=== PATIENT | female | born 1955 | race Caucasian/White ===

== ENCOUNTER → 2016-10-22 | Outpatient (REF) | payer BC | LOC: M SFHCPLAZ 11:21 | PROVIDERS: ATTEND Nurse Practitioner Adult Health | DX: J02.9 Acute pharyngitis, unspecified (principal) ==

== ENCOUNTER → 2016-11-29 | Outpatient (CLI) | payer BC ==
--- NOTE | 2016-11-29 09:22 | REPMRS ---
Patient History The patient states she had a clinical breast exam in 11/2016. Patient is postmenopausal. No known family history of cancer. Took progesterone for 8 months. Digital Woman Screen Mammo: November 29, 2016 - Exam #: [id number] Bilateral CC and MLO view(s) were taken. Technologist: Breanna Manuel, Technologist Prior study comparison: August 01, 2015, digital woman screen mammo performed at [facility] to [facility]. February 11, 2014, digital woman screen mammo performed at [facility] to [facility]. FINDINGS: There are scattered fibroglandular densities. There has been no change in the appearance of the mammogram from the prior studies. There is a mild amount of residual fibroglandular tissue which is fairly symmetric. There is no interval development of dominant mass, architectural distortion, or clustered microcalcification suggestive of malignancy. ASSESSMENT: BI-RADS/ACR category 1 mammogram. Negative. Recommendation Routine screening mammogram in 1 year (for women over age 40). This mammogram was interpreted with the aid of an FDA-approved computer-aided dectection system. Electronically Signed By: Jd Daniels MD 11/29/16 0922
== END ==
LOC: M WHC 07:35
PROVIDERS: ATTEND Nurse Practitioner Family
DX: Z12.31 Encounter for screening mammogram for malignant neoplasm of breast (principal); Z78.0 Asymptomatic menopausal state

== ENCOUNTER → 2017-10-07 | Outpatient (REF) | payer BC ==
[2017-10-07 09:51] LABS: HEMATOCRIT 40.2 % (36.0-47.0); HEMOGLOBIN 13.4 g/dl (12.0-16.0); MEAN CORPUSCULAR HEMOGLOBIN 30.6 pg (27.0-33.0); MEAN CORPUSCULAR HGB CONC 33.3 g/dl (32.0-36.5); MEAN CORPUSCULAR VOLUME 91.8 fl (80.0-96.0); PLATELET COUNT, AUTOMATED 208 10^3/uL (150-450); RED BLOOD COUNT 4.38 10^6/uL (4.00-5.40); WHITE BLOOD COUNT 4.1 10^3/uL (4.0-10.0)
[2017-10-07 10:44] LABS: ALBUMIN 4.1 GM/DL (3.2-5.2); ALBUMIN/GLOBULIN RATIO 1.28 (1.00-1.93); ALKALINE PHOSPHATASE 69 U/L (45-117); ALT/SGPT 14 U/L (12-78); ANION GAP 7 MEQ/L (8-16); AST/SGOT 15 U/L (7-37); BILIRUBIN,TOTAL 0.4 MG/DL (0.2-1.0); BLOOD UREA NITROGEN 13 MG/DL (7-18); CALCIUM LEVEL 8.9 MG/DL (8.8-10.2); CARBON DIOXIDE LEVEL 29 MEQ/L (21-32); CHLORIDE LEVEL 106 MEQ/L (98-107); CHOLESTEROL LEVEL 226 MG/DL (<200); CHOLESTEROL RISK RATIO 3.138 (<5); CREATININE FOR GFR 0.72 MG/DL (0.55-1.30); GLOMERULAR FILTRATION RATE > 60.0 (>45); GLUCOSE, FASTING 103 MG/DL (70-100); HDL CHOLESTEROL 72 MG/DL (>40); MAGNESIUM LEVEL 2.6 MG/DL (1.8-2.4); NON-HDL-C 154 MG/DL; POTASSIUM SERUM 4.1 MEQ/L (3.5-5.1); SODIUM LEVEL 142 MEQ/L (136-145); TOTAL PROTEIN 7.3 GM/DL (6.4-8.2); TRIGLYCERIDES LEVEL 90 MG/DL (<150)
[2017-10-07 12:40] LABS: TOTAL 25(OH) VITAMIN D 40.3 NG/ML (30.0-100.0)
[2017-10-07 12:41] LABS: VITAMIN B12 LEVEL 323 PG/ML (247-911)
== END ==
LOC: M SFHCPLAZ 09:21
DX: Z00.00 Encounter for general adult medical examination without abnormal findings (principal); R13.10 Dysphagia, unspecified; E03.9 Hypothyroidism, unspecified; E55.9 Vitamin D deficiency, unspecified
CPT/HCPCS: 83735

== ENCOUNTER → 2018-06-09 | Outpatient (REF) | payer BC | LOC: M LAB REF 18:28 | DX: L57.0 Actinic keratosis (principal); L28.0 Lichen simplex chronicus ==

== ENCOUNTER → 2018-07-11 | Outpatient (CLI) | payer BC | LOC: M WHC 08:24 | DX: Z12.31 Encounter for screening mammogram for malignant neoplasm of breast (principal); Z78.0 Asymptomatic menopausal state; Z92.29 Personal history of other drug therapy | CPT/HCPCS: 77067 ==

== ENCOUNTER → 2019-06-02 | Outpatient (REF) | payer BC ==
[2019-06-02 11:48] LABS: HEMOGLOBIN 13.1 g/dl (12.0-15.5); MEAN CORPUSCULAR HEMOGLOBIN 30.7 pg (27.0-33.0); PLATELET COUNT, AUTOMATED 208 10^3/uL (150-450); RED BLOOD COUNT 4.27 10^6/uL (4.00-5.40); WHITE BLOOD COUNT 3.7 10^3/uL (4.0-10.0)
[2019-06-02 12:05] LABS: ALBUMIN 3.7 GM/DL (3.2-5.2); ALT/SGPT 16 U/L (12-78); BILIRUBIN,TOTAL 0.6 MG/DL (0.2-1.0); BLOOD UREA NITROGEN 14 MG/DL (7-18); CALCIUM LEVEL 8.6 MG/DL (8.8-10.2); CARBON DIOXIDE LEVEL 30 MEQ/L (21-32); CHLORIDE LEVEL 109 MEQ/L (98-107); CHOLESTEROL LEVEL 190 MG/DL (<200); CHOLESTEROL RISK RATIO 2.794 (<5); GLOMERULAR FILTRATION RATE > 60.0 (>45); GLUCOSE, FASTING 99 MG/DL (70-100); HDL CHOLESTEROL 68 MG/DL (>40); LDL CHOLESTEROL 113 MG/DL (<100); NON-HDL-C 122 MG/DL; POTASSIUM SERUM 4.4 MEQ/L (3.5-5.1); SODIUM LEVEL 144 MEQ/L (136-145); TRIGLYCERIDES LEVEL 47 MG/DL (<150); VITAMIN B12 LEVEL 278 PG/ML (247-911)
== END ==
LOC: M LAB REF 11:28
PROVIDERS: ATTEND Nurse Practitioner Adult Health
DX: Z00.00 Encounter for general adult medical examination without abnormal findings (principal); Z13.220 Encounter for screening for lipoid disorders; E03.9 Hypothyroidism, unspecified

== ENCOUNTER → 2019-07-13 | Outpatient (REF) | payer BC | LOC: M PLALAB 09:08 | PROVIDERS: ATTEND Nurse Practitioner Family | DX: Z12.4 Encounter for screening for malignant neoplasm of cervix (principal); N95.2 Postmenopausal atrophic vaginitis | CPT/HCPCS: 87624; G0123 ==

== ENCOUNTER → 2019-07-13 | Outpatient (CLI) | payer BC ==
--- NOTE | 2019-07-13 09:50 | REPMRS ---
Patient History The patient states she had a clinical breast exam in 2018. Family history of breast cancer at age 50 or over in paternal half sister. Took progesterone for 8 months. Digital Woman Screen Mammo: July 13, 2019 - Exam #: [id number] Bilateral CC and MLO view(s) were taken. Technologist: Veronica Altamirano, Technologist Prior study comparison: July 11, 2018, bilateral digital woman screen mammo performed at [facility]. November 29, 2016, digital woman screen mammo performed at [facility]. August 01, 2015, digital woman screen mammo performed at [facility]. FINDINGS: There are scattered fibroglandular densities. There is a 4 mm nodular opacity centrally in the left breast unchanged from the 2017 prior study. There has been no other change in the appearance of the mammogram from the prior studies. There is a mild amount of scattered fibroglandular density which is fairly symmetric. There is no interval development of dominant mass, architectural distortion, or grouped microcalcification suggestive of malignancy. 3-D tomosynthesis shows no additional findings. Assessment: BI-RADS/ACR category 2 mammogram. Benign Findings. Recommendation Routine screening mammogram of both breasts in 1 year (for women over age 40). This patient's Lifetime Breast Cancer Risk is estimated at 7.7 %. This mammogram was interpreted with the aid of an FDA-approved computer-aided dectection system. Electronically Signed By: Will Venegas MD 07/13/19 9361
== END ==
LOC: M WHC 08:49
PROVIDERS: ATTEND Nurse Practitioner Family
DX: Z12.31 Encounter for screening mammogram for malignant neoplasm of breast (principal); Z80.3 Family history of malignant neoplasm of breast

== ENCOUNTER → 2020-06-14 | Outpatient (REF) | payer BC ==
[2020-06-14 13:14] LABS: ALBUMIN 4.1 GM/DL (3.2-5.2); ALT/SGPT 21 U/L (12-78); BILIRUBIN,TOTAL 0.8 MG/DL (0.2-1.0); BLOOD UREA NITROGEN 16 MG/DL (7-18); CALCIUM LEVEL 9.2 MG/DL (8.8-10.2); CARBON DIOXIDE LEVEL 30 MEQ/L (21-32); CHLORIDE LEVEL 106 MEQ/L (98-107); CHOLESTEROL LEVEL 237 MG/DL (<200); CHOLESTEROL RISK RATIO 2.962 (<5); CREATININE FOR GFR 0.79 MG/DL (0.55-1.30); GLOMERULAR FILTRATION RATE > 60.0 (>45); GLUCOSE, FASTING 81 MG/DL (70-100); HDL CHOLESTEROL 80 MG/DL (>40); LDL CHOLESTEROL 147 MG/DL (<100); NON-HDL-C 157 MG/DL; POTASSIUM SERUM 4.3 MEQ/L (3.5-5.1); SODIUM LEVEL 141 MEQ/L (136-145); TOTAL 25(OH) VITAMIN D 48.3 NG/ML (30.0-100.0); TOTAL PROTEIN 7.6 GM/DL (6.4-8.2); TRIGLYCERIDES LEVEL 49 MG/DL (<150)
== END ==
LOC: M SFHCPLAZ 11:37
PROVIDERS: ATTEND Nurse Practitioner Adult Health
DX: Z00.00 Encounter for general adult medical examination without abnormal findings (principal); E55.9 Vitamin D deficiency, unspecified; Z13.220 Encounter for screening for lipoid disorders; E03.9 Hypothyroidism, unspecified

== ENCOUNTER → 2020-06-28 | Outpatient (REF) | payer BC | LOC: M SFHCWAGY 10:04 | PROVIDERS: ATTEND Nurse Practitioner Adult Health | DX: Z00.00 Encounter for general adult medical examination without abnormal findings (principal) ==

== ENCOUNTER → 2020-07-30 | Outpatient (CLI) | payer BC | LOC: M LABSMTC 11:14 | PROVIDERS: ATTEND Pediatrics | DX: Z20.828 Contact with and (suspected) exposure to other viral communicable diseases (principal) ==

== ENCOUNTER → 2021-01-06 | Outpatient (REF) | payer BC ==
[2021-01-06 11:32] LABS: HEMATOCRIT 40.7 % (36.0-47.0); HEMOGLOBIN 13.2 g/dl (12.0-15.5); MEAN CORPUSCULAR HEMOGLOBIN 29.8 pg (27.0-33.0); MEAN CORPUSCULAR HGB CONC 32.4 g/dl (32.0-36.5); MEAN CORPUSCULAR VOLUME 91.9 fl (80.0-96.0); PLATELET COUNT, AUTOMATED 192 10^3/uL (150-450); RED BLOOD COUNT 4.43 10^6/uL (4.00-5.40); WHITE BLOOD COUNT 3.3 10^3/uL (4.0-10.0)
[2021-01-06 14:58] LABS: ALT/SGPT 18 U/L (12-78); BILIRUBIN,TOTAL 0.4 MG/DL (0.2-1.0); BLOOD UREA NITROGEN 14 MG/DL (7-18); CALCIUM LEVEL 9.1 MG/DL (8.8-10.2); CARBON DIOXIDE LEVEL 29 MEQ/L (21-32); CHLORIDE LEVEL 106 MEQ/L (98-107); CREATININE FOR GFR 0.62 MG/DL (0.55-1.30); FERRITIN 146 NG/ML (8-252); GLOMERULAR FILTRATION RATE > 60.0 (>45); GLUCOSE, FASTING 78 MG/DL (70-100); IRON (FE) 75 UG/DL (50-170); PERCENT SATURATION 26.1 % (13.2-45.0); POTASSIUM SERUM 3.9 MEQ/L (3.5-5.1); SODIUM LEVEL 140 MEQ/L (136-145); TOTAL IRON BINDING CAPACITY 287 UG/DL (250-450); TOTAL PROTEIN 7.2 GM/DL (6.4-8.2)
[2021-01-06 15:00] LABS: TOTAL 25(OH) VITAMIN D 40.9 NG/ML (30.0-100.0); VITAMIN B12 LEVEL > 2000 PG/ML (247-911)
== END ==
LOC: M LAB REF 09:39
PROVIDERS: ATTEND Nurse Practitioner Adult Health
DX: E55.9 Vitamin D deficiency, unspecified (principal); R53.83 Other fatigue; E53.8 Deficiency of other specified B group vitamins; E03.9 Hypothyroidism, unspecified

== ENCOUNTER → 2021-10-10 | Outpatient (REF) | payer BC | LOC: M LAB REF 11:34 | PROVIDERS: ATTEND Nurse Practitioner Adult Health | DX: E03.9 Hypothyroidism, unspecified (principal) ==

== ENCOUNTER → 2021-10-24 | Outpatient (REF) | payer BC | LOC: M SFHCPLAZ 19:35 | PROVIDERS: ATTEND Nurse Practitioner Adult Health | DX: R21 Rash and other nonspecific skin eruption (principal); R50.9 Fever, unspecified ==

== ENCOUNTER → 2021-10-25 | Outpatient (CLI) | payer BC ==
[2021-10-25 10:17] LABS: HEMATOCRIT 40.9 % (36.0-47.0); HEMOGLOBIN 13.6 g/dl (12.0-15.5); MEAN CORPUSCULAR HEMOGLOBIN 30.2 pg (27.0-33.0); MEAN CORPUSCULAR HGB CONC 33.3 g/dl (32.0-36.5); MEAN CORPUSCULAR VOLUME 90.7 fl (80.0-96.0); PLATELET COUNT, AUTOMATED 249 10^3/uL (150-450); RED BLOOD COUNT 4.51 10^6/uL (4.00-5.40); WHITE BLOOD COUNT 8.4 10^3/uL (4.0-10.0)
[2021-10-25 10:35] LABS: ALBUMIN 3.7 GM/DL (3.2-5.2); ALT/SGPT 18 U/L (12-78); BILIRUBIN,TOTAL 0.6 MG/DL (0.2-1.0); BLOOD UREA NITROGEN 15 MG/DL (7-18); C REACTIVE PROTEIN QUANTITATIV 0.76 MG/DL (0.00-0.30); CALCIUM LEVEL 9.4 MG/DL (8.8-10.2); CARBON DIOXIDE LEVEL 33 MEQ/L (21-32); CHLORIDE LEVEL 105 MEQ/L (98-107); CREATININE FOR GFR 0.82 MG/DL (0.55-1.30); GLOMERULAR FILTRATION RATE > 60.0 (>45); GLUCOSE, FASTING 110 MG/DL (70-100); POTASSIUM SERUM 4.1 MEQ/L (3.5-5.1); SODIUM LEVEL 141 MEQ/L (136-145); TOTAL PROTEIN 6.8 GM/DL (6.4-8.2)
[2021-10-25 10:42] LABS: ERYTHROCYTE SEDIMENTATION RATE 13 mm/hr (0-30)
== END ==
LOC: M PLALAB 07:00
PROVIDERS: ATTEND Nurse Practitioner Adult Health
DX: R21 Rash and other nonspecific skin eruption (principal); R50.9 Fever, unspecified

== ENCOUNTER → 2022-03-20 | Outpatient (CLI) | payer BC | LOC: M WHC 07:24 | PROVIDERS: ATTEND Nurse Practitioner Adult Health | DX: Z12.31 Encounter for screening mammogram for malignant neoplasm of breast (principal) ==

== ENCOUNTER → 2022-12-06 | Outpatient (CLI) | payer BC ==
[2022-12-06 09:00] LABS: HEMATOCRIT 39.8 % (36.0-47.0); HEMOGLOBIN 13.1 g/dl (12.0-15.5); MEAN CORPUSCULAR HEMOGLOBIN 30.6 pg (27.0-33.0); MEAN CORPUSCULAR HGB CONC 32.9 g/dl (32.0-36.5); PLATELET COUNT, AUTOMATED 201 10^3/uL (150-450); RED BLOOD COUNT 4.28 10^6/uL (4.00-5.40); WHITE BLOOD COUNT 4.9 10^3/uL (4.0-10.0)
[2022-12-06 09:24] LABS: ALBUMIN 3.8 G/DL (3.2-5.2); ALKALINE PHOSPHATASE 66 U/L (46-116); ALT/SGPT 14 U/L (7.0-40); AST/SGOT 20 U/L (<34); BILIRUBIN,TOTAL 0.5 MG/DL (0.3-1.2); BLOOD UREA NITROGEN 18 MG/DL (9-23); CARBON DIOXIDE LEVEL 30 MMOL/L (20-31); CHLORIDE LEVEL 106 MMOL/L (98-107); CREATININE FOR GFR 0.71 MG/DL (0.55-1.30); GLOMERULAR FILTRATION RATE > 60.0 (>45); GLUCOSE, FASTING 106 MG/DL (74-106); MAGNESIUM LEVEL 2.2 MG/DL (1.8-2.4); POTASSIUM SERUM 4.3 MMOL/L (3.5-5.1); SODIUM LEVEL 141 MMOL/L (136-145); TOTAL PROTEIN 6.7 G/DL (5.7-8.2)
[2022-12-06 09:26] LABS: THYROID STIMULATING HORMONE 1.349 uIU/ML (0.55-4.78); TOTAL 25(OH) VITAMIN D 49.9 NG/ML (20.0-100.0); VITAMIN B12 LEVEL 1080 PG/ML (211-911)
== END ==
LOC: M RAD 08:19
PROVIDERS: ATTEND Nurse Practitioner Adult Health
DX: E03.9 Hypothyroidism, unspecified (principal); R25.2 Cramp and spasm; R53.83 Other fatigue; M79.661 Pain in right lower leg; E83.51 Hypocalcemia; Z83.49 Family history of other endocrine, nutritional and metabolic diseases

== ENCOUNTER → 2022-12-06 | Outpatient (REF) | payer BC | LOC: M SFHCPLAZ 07:47 | PROVIDERS: ATTEND Nurse Practitioner Adult Health | DX: Z53.9 Procedure and treatment not carried out, unspecified reason (principal) ==

== ENCOUNTER → 2023-04-04 | Outpatient (CLI) | payer BC | LOC: M WHC 10:31 | PROVIDERS: ATTEND Nurse Practitioner Adult Health | DX: Z12.31 Encounter for screening mammogram for malignant neoplasm of breast (principal) ==

== ENCOUNTER → 2024-05-12 | Outpatient (CLI) | payer BC | LOC: M WHC 07:25 | PROVIDERS: ATTEND Nurse Practitioner Adult Health | DX: Z12.31 Encounter for screening mammogram for malignant neoplasm of breast (principal) ==

== ENCOUNTER → 2024-05-19 | Outpatient (CLI) | payer BC ==
[2024-05-19 13:02] LABS: HEMATOCRIT 40.4 % (36.0-47.0); HEMOGLOBIN 13.2 g/dl (12.0-15.5); MEAN CORPUSCULAR HEMOGLOBIN 30.9 pg (27.0-33.0); MEAN CORPUSCULAR HGB CONC 32.7 g/dl (32.0-36.5); MEAN CORPUSCULAR VOLUME 94.6 fl (80.0-96.0); PLATELET COUNT, AUTOMATED 201 10^3/uL (150-450); RED BLOOD COUNT 4.27 10^6/uL (4.00-5.40); WHITE BLOOD COUNT 4.2 10^3/uL (4.0-10.0)
[2024-05-19 13:13] LABS: INR 1.06; PARTIAL THROMBOPLASTIN TIME 29.7 SECONDS (24.8-34.2); PROTHROMBIN TIME 13.5 SECONDS (12.5-14.5)
[2024-05-19 13:15] LABS: HEMOGLOBIN A1c 5.1 % (4.0-6.0)
[2024-05-19 13:32] LABS: ALBUMIN 3.9 G/DL (3.2-5.2); ALKALINE PHOSPHATASE 66 U/L (46-116); ALT/SGPT 13 U/L (7.0-40); AST/SGOT 10 U/L (<34); BILIRUBIN,DIRECT 0.1 MG/DL (<0.4); BILIRUBIN,TOTAL 0.5 MG/DL (0.3-1.2); BLOOD UREA NITROGEN 13 MG/DL (9-23); CALCIUM LEVEL 9.8 MG/DL (8.3-10.6); CARBON DIOXIDE LEVEL 30 MMOL/L (20-31); CHLORIDE LEVEL 107 MMOL/L (98-107); CREATININE FOR GFR 0.72 MG/DL (0.55-1.30); GLOMERULAR FILTRATION RATE > 60.0 (>45); GLUCOSE, FASTING 99 MG/DL (74-106); PHOSPHORUS LEVEL 4.5 MG/DL (2.4-5.1); POTASSIUM SERUM 4.3 MMOL/L (3.5-5.1); SODIUM LEVEL 141 MMOL/L (136-145); TOTAL PROTEIN 7.3 G/DL (5.7-8.2)
== END ==
LOC: M PLALAB 09:20
PROVIDERS: ATTEND Student in an Organized Health Care Education/Training Program
DX: Z01.818 Encounter for other preprocedural examination (principal)

== ENCOUNTER → 2024-06-23 | Outpatient (CLI) | payer BC | LOC: M PLAIMG 16:19 | PROVIDERS: ATTEND Nurse Practitioner Adult Health | DX: R05.3 Chronic cough (principal); R09.89 Other specified symptoms and signs involving the circulatory and respiratory systems ==

== ENCOUNTER → 2024-09-16 | Outpatient (REF) | payer BC ==
[2024-09-16 14:18] LABS: ALBUMIN 4.1 G/DL (3.2-5.2); ALKALINE PHOSPHATASE 68 U/L (35-104); ALT/SGPT 15 U/L (7.0-40); AST/SGOT 18 U/L (<34); BILIRUBIN,TOTAL 0.5 MG/DL (0.3-1.2); BLOOD UREA NITROGEN 18 MG/DL (9-23); CALCIUM LEVEL 9.1 MG/DL (8.3-10.6); CARBON DIOXIDE LEVEL 27 MMOL/L (20-31); CHLORIDE LEVEL 103 MMOL/L (98-107); CHOLESTEROL LEVEL 247 MG/DL (<200); CHOLESTEROL RISK RATIO 3.39 (<5); CREATININE FOR GFR 0.69 MG/DL (0.55-1.30); FREE T4 1.44 NG/DL (0.89-1.76); GLOMERULAR FILTRATION RATE > 60.0 (>45); GLUCOSE, FASTING 93 MG/DL (74-106); HDL CHOLESTEROL 72.7 MG/DL (>40); LDL CHOLESTEROL 162.7 MG/DL (<100); MAGNESIUM LEVEL 2.2 MG/DL (1.8-2.4); NON-HDL-C 174.3 MG/DL; POTASSIUM SERUM 4.5 MMOL/L (3.5-5.1); SODIUM LEVEL 142 MMOL/L (136-145); THYROID STIMULATING HORMONE 1.023 uIU/ML (0.55-4.78); TOTAL PROTEIN 7.6 G/DL (5.7-8.2); TRIGLYCERIDES LEVEL 58 MG/DL (<150); VITAMIN B12 LEVEL 1594 PG/ML (211-911)
== END ==
LOC: M LAB REF 10:41
PROVIDERS: ATTEND Nurse Practitioner Adult Health
DX: R25.2 Cramp and spasm (principal); E03.9 Hypothyroidism, unspecified; E78.2 Mixed hyperlipidemia; E83.51 Hypocalcemia; E55.9 Vitamin D deficiency, unspecified; Z83.49 Family history of other endocrine, nutritional and metabolic diseases

== ENCOUNTER → 2024-09-17 | Outpatient (REF) | payer BC | LOC: M LAB REF 17:15 | PROVIDERS: ATTEND Nurse Practitioner Adult Health | DX: E55.9 Vitamin D deficiency, unspecified (principal) ==

== ENCOUNTER → 2025-05-31 | Outpatient (CLI) | payer BC | LOC: M WHC 12:37 | PROVIDERS: ATTEND Nurse Practitioner Adult Health | DX: Z12.31 Encounter for screening mammogram for malignant neoplasm of breast (principal); R92.313 Mammographic fatty tissue density, bilateral breasts ==

== ENCOUNTER → 2025-06-08 | Outpatient (REF) | payer BC ==
[2025-06-08 13:41] LABS: APPEARANCE, URINE HAZY (CLEAR); BACTERIA, URINE AUTO 2+ (NEGATIVE); BILIRUBIN, URINE AUTO NEGATIVE (NEGATIVE); BLOOD, URINE BLOOD NEGATIVE (NEGATIVE); GLUCOSE, URINE (UA) AUTO NEGATIVE (NEGATIVE); KETONE, URINE AUTO NEGATIVE (NEGATIVE); LEUKOCYTE ESTERASE, URINE AUTO 1+ (NEGATIVE); NITRITE, URINE AUTO NEGATIVE (NEGATIVE); PROTEIN, URINE AUTO NEGATIVE (NEGATIVE); RBC, URINE AUTO 6 /HPF (0-3); SPECIFIC GRAVITY URINE AUTO 1.012 (1.002-1.035); SQUAMOUS EPITHELIAL CELL UR AU 2 /HPF (0-6); UROBILINOGEN, URINE AUTO 0.2 mg/dL (0.0-2.0); WBC, URINE AUTO 2 /HPF (0-3)
== END ==
LOC: M SFHCPLAZ 12:36
DX: R39.9 Unspecified symptoms and signs involving the genitourinary system (principal)